=== PATIENT | male | born 1985 | race Caucasian/White ===

== ENCOUNTER 2023-05-07 17:06 | Emergency (ER) | payer SELFPAY ==
[2023-05-07 17:20] VITALS: BP 146/90; PULSE 119; RESP 18; TEMP 36.6; O2SAT 96; BMI 33.5
[2023-05-07 17:35] LABS: UTC Strep Screen (Rapid) Negative (Negative)
--- NOTE | 2023-05-07 17:37 | EXP.UTC ---
Discharge Plan Disposition Patient Disposition: Home, Self-Care Condition: Good Prescriptions Prescriptions: New methylprednisolone 4 mg Tablets,Dose Pack 4 mg PO DIRECTED Qty: 21 0RF amoxicillin-pot clavulanate 875-125 mg Tablet 1 tab PO Q12H Qty: 20 0RF No Action lisinopril 20 mg tablet 20 mg PO DAILY Patient Comments: TAKE 1 TABLET BY ORAL DAILY Referrals Follow up/Referrals: Librado Long MD [Primary Care Provider] - See instructions Activity Restrictions/Add. Instructions Additional Instructions/Restrictions: Drink plenty of fluids. Take tylenol or ibuprofen for pain or fever. Take the medications as directed. Follow up with your regular doctor. GO TO THE ER FOR ANY WORSENING SYMPTOMS Clinical Impressions Clinical Impression: Otitis media Instructions Patient Instructions: Middle Ear Infection, DI for Sinusitis, Methylprednisolone, Amoxicillin and Clavulanic Acid Print Language Print Language: Divehi Discharge ED Provider: Benedict Mitchell [facility] HPI General Stated complaint: ear ache Time Seen by Provider: 05/07/23 17:37 History of Present Illness Provider Complaint: He states that he has had sinus congestion and ear pain for the past 2 days. Related Data Home Medications Medication Instructions Recorded Confirmed lisinopril 20 mg tablet 20 mg PO DAILY Hypertension 05/07/23 05/07/23 Previous Rx's Medication Instructions Recorded amoxicillin 875 mg-potassium 1 tab PO Q12H #20 tabs 05/07/23 clavulanate 125 mg tablet methylprednisolone 4 mg tablets in 4 mg PO DIRECTED #21 tabs 05/07/23 a dose pack Allergies Allergy/AdvReac Type Severity Reaction Status Date / Time No Known Allergies Allergy Verified 05/07/23 17:41 [facility] Disclaimer: The information contained in this section may have been updated after the patient was seen, as this information can be updated by other users. Social History Smoking Status: Never smoker alcohol intake: never current occupational status: employed Travel in the last 8 weeks: None ROS Obtained: Yes All systems reviewed & no additional complaints except as documented Constitutional Constitutional: Denies chills, Reports fever(s) and Reports poor appetite Eyes Eyes: Denies eye discharge ENT Ears, Nose, Mouth, and Throat: Denies ear discharge, Reports otalgia, Denies hearing loss, Denies sinus pain and Reports sore throat Cardiovascular Cardiovascular: Denies chest pain and Denies dyspnea Respiratory Respiratory: Denies chest congestion, Reports cough and Denies dyspnea Gastrointestinal Gastrointestingal: Denies abdominal pain, diarrhea, nausea or vomiting Musculoskeletal Musculoskeletal: Denies arthralgias Integumentary/Breasts Skin/Breast: Denies rash Physical Exam General General appearance: alert and in no apparent distress Head Head exam: atraumatic, normocephalic and normal inspection Eye Eye exam: Present normal appearance; Absent PERRL or EOMI ENT ENT exam: Present mucous membranes moist and normal external ear exam Expanded ENT Exam TM/Canal exam: Bilateral TM: erythema, bulging and effusion Nose exam: Absent sinus tenderness Nasal speculum exam: Bilateral: normal Mouth exam: Present normal external inspection and other; Absent drooling Teeth exam: Present normal inspection Throat exam: Present tonsillar erythema and tonsillomegaly Neck Neck exam: Present normal inspection, full ROM and trachea midline; Absent tenderness, meningismus or lymphadenopathy Chest Chest inspection: Present normal inspection and symmetric chest wall rise; Absent tenderness Respiratory Respiratory exam: Present normal lung sounds bilaterally; Absent respiratory distress, wheezes or stridor Cardiovascular Cardiovascular exam: Present regular rate, normal rhythm and normal heart sounds; Absent tachycardia or irregular rhythm Abdominal Exam Abdominal exam: Present soft and normal bowel sounds; Ab
[2023-05-07 18:03] VITALS: BP 146/90; PULSE 119; RESP 18; TEMP 36.6; O2SAT 96
== END 2023-05-07 18:03 | disposition home or self-care (01) ==
PROVIDERS: Emergency Provider Nurse Practitioner Family; PCP Emergency Medicine
DX: H66.93 Otitis media, unspecified, bilateral (principal); R09.81 Nasal congestion; R50.9 Fever, unspecified; R07.0 Pain in throat; R05.9 Cough, unspecified
CPT/HCPCS: 87880; 99204; 99212; G0463